=== PATIENT | female | born 1965 | race Caucasian/White ===

== ENCOUNTER 2016-12-20 11:18 | Emergency (ER) | payer OTHER ==
[~2016-12-20] VITALS: Ht 157.5 cm; Wt 95.0 kg
[2016-12-20 11:21] VITALS: TEMP 36.8; Ht 157.5 cm; Wt 95.0 kg
[2016-12-20] MEDS ORDERED: CEFAZOLIN IV 2,000 MG in DEXTROSE 5% 50ML 50 ML IV ONE (11:45)
--- NOTE | 2016-12-20 12:18 | DIAGNOSTIC IMAGING REPORT ---
LEFT ANKLE 3 VIEWS HISTORY: cellulitis L ankle COMPARISON: None. FINDINGS: There is no fracture or dislocation. Lateral soft tissue swelling. No cortical erosion. No radiopaque foreign bodies. IMPRESSION: Lateral soft tissue swelling within the left ankle. No underlying bony abnormality. Electronically signed by: Michael Oscar M.D. 12/20/2016 12:16 PM Dictated Date/Time: 12/20/2016 12:15 PM
[2016-12-20 12:31] LABS: BUN/CREATININE RATIO 10.7 (10-20); CALCIUM 9.5 mg/dl (8.5-10.1); CREATININE 0.76 mg/dl (0.60-1.20)
[2016-12-20 13:03] LABS: BASO % 0.2 %; BASO ABS # 0.02 K/uL (0-0.2); COMPLETE YES; EOS % 1.5 %; HEMATOCRIT 42.3 % (37-47); IG% 0.4 %; LYMPH % 16.6 %; LYMPH ABS # 1.87 K/uL (1.2-3.4); MEAN CELL VOLUME 84.8 fL (80-100); MEAN CORPUSCULAR HEMOGLOBIN 30.1 pg (25-34); MEAN CORPUSCULAR HGB CONC 35.5 g/dl (32-36); MEAN PLATELET VOLUME 10.4 fL (7.4-10.4); MONO % 7.6 %; NEUT % 73.7 %; PLATELET COUNT 232 K/uL (130-400); RED BLOOD COUNT 4.99 M/uL (4.2-5.4); WHITE BLOOD COUNT 11.27 K/uL (4.8-10.8)
[2016-12-20] MEDS ORDERED: CEPH500C PO (14:52)
[2016-12-20 15:10] VITALS: BP 108/51; PULSE 79; O2SAT 94
[2016-12-20] MEDS ORDERED: CEPHALEXIN 500MG HOME PACK 1 EA BTL PO ONE (15:15)
--- NOTE | 2016-12-21 17:51 | EMERGENCY ROOM VISIT NOTE ---
History First contact with patient: 11:24 Chief Complaint: WOUND INFECTION Stated Complaint: LEFT ANKLE INFECTION Nursing Triage Summary: left vail infection unable to visualize in triage History of Present Illness The patient is a 51 year old, [place] white female who presents to the Emergency Room with complaints of pain, redness, swelling of her left ankle. Her accompanies her today. Symptoms have been present for a few days. She states she has been wearing shoes. The morning before onset, she walked out to the garden to spread fertilizer on her garden. She denies any known insect bites or stings. She denies any known trauma to the ankle. Redness has been increasing, as has the pain and swelling. No treatment other than topical castor oil. She denies any fevers or chills. She is ambulatory with a limp secondary to the pain. She notes some redness in the lateral calf. No shortness of breath. No history of clots. No prior history of similar episode. Review of Systems REVIEW OF SYSTEM: HEENT: No dizziness, visual problems, hearing loss, or tinnitus. There is no difficulty swallowing and no oral lesions are present. PULMONARY: No cough, shortness of breath, sputum production or hemoptysis. CARDIOVASCULAR: No chest pain, palpitations, shortness of breath or peripheral edema. GASTROINTESTINAL: No diarrhea, constipation, nausea, vomiting, or abdominal pain. GENITOURINARY: No dysuria, frequency, urgency or nocturia. NEUROLOGIC: No weakness, muscle tenderness, epilepsy or history of neurological problems. MUSCULOSKELETAL: No history of joint tenderness/swelling. No history of arthritis or arthralgias. SKIN: No rashes or lesions. PSYCHIATRIC: No history of depression or mental illness. ENDOCRINE: No history of diabetes, thyroid disorders, or abnormal hair growth. Past Medical/Surgical History Previous surgeries: None. Medical history: Benign Family History Noncontributory. Social History Smoking Status: Never Smoker Smokeless Tobacco Use: No Alcohol Use: none Drug Use: none Marital Status: Housing Status: lives with family Occupation Status: unemployed Current/Historical Medications Scheduled Cephalexin Monohydrate (Keflex), 500 MG PO QID Allergies Coded Allergies: Sulfa Antibiotics (Unverified Allergy, Unknown, ., 12/20/16) Amoxicillin (Unverified Adverse Reaction, Unknown, ., 12/20/16) PREFERS NOT TO TAKE IT Physical Exam Vital Signs Date Time Temp Pulse Resp B/P (MAP) Pulse Ox O2 Delivery O2 Flow Rate FiO2 12/20/16 15:10 79 20 108/51 94 12/20/16 12:02 68 20 112/67 98 Room Air 12/20/16 11:21 36.8 73 18 115/70 97 Pain Rating (0-10): 2.0 Physical Exam Gen.: Well-developed, well-nourished, middle-aged white female, in no acute distress. Obvious discomfort. Sitting on a bed. Alert and oriented. Skin:Warm and dry with good turgor. No ecchymosis. She has erythema present over the posterior lateral of the ankle. It is approximately 8-9 cm in diameter for the most central induration. There is mild redness extending out from that. There is a central pinpoint puncture that may be an insect sting or bite. No stinger is remaining. There is a punctate scab. This was removed easily. There is no purulent drainage. Nothing is expressible. No palpable soft central abscess. Area is hot and tender to touch. The patient is not diaphoretic. No abrasions. Musculoskeletal: Gross motor function is intact to the knee, ankle, and toes. There is pain with palpation over the posterior lateral ankle and over the Achilles. No pain with palpation on the medial aspect. Normal Homans test. Normal Spangler test. Neurologic: Gross sensation is intact across the foot and ankle by soft touch. Peripheral pulses are 2+. Medical Decision & Procedures ER Provider Diagnostic Interpretation: Radiographic imaging obtained today of left ankle was read by radiology as negative for fracture. Soft tissue swelling is noted. Laboratory Results 12/20/16 11:45 Red Blood Count 4.99, Mean Corpuscular Volume 84.8, Mean Corpuscular Hemoglobin 30.1, Mean Corpuscular Hemoglobin Concent 35.5, Mean Platelet Volume 10.4, Neutrophils (%) (Auto) 73.7, Lymphocytes (%) (Auto) 16.6, Monocytes (%) (Auto) 7.6, Eosinophils (%) (Auto) 1.5, Basophils (%) (Auto) 0.2, Neutrophils # (Auto) 8.31, Lymphocytes # (Auto) 1.87, Monocytes # (Auto) 0.86, Eosinophils # (Auto) 0.17, Basophils # (Auto) 0.02 12/20/16 11:45 Test 12/20/16 11:45 White Blood Count 11.27 K/uL (4.8-10.8) Red Blood Count 4.99 M/uL (4.2-5.4) Hemoglobin 15.0 g/dL (12.0-16.0) Hematocrit 42.3 % (37-47) Mean Corpuscular Volume 84.8 fL (80-100) Mean Corpuscular Hemoglobin 30.1 pg (25-34) Mean Corpuscular Hemoglobin Concent 35.5 g/dl (32-36) Platelet Count 232 K/uL (130-400) Mean Platelet Volume 10.4 fL (7.4-10.4) Neutrophils (%) (Auto) 73.7 % Lymphocytes (%) (Auto) 16.6 % Monocytes (%) (Auto) 7.6 % Eosinophils (%) (Auto) 1.5 % Basophils (%) (Auto) 0.2 % Neutrophils # (Auto) 8.31 K/uL (1.4-6.5) Lymphocytes # (Auto) 1.87 K/uL (1.2-3.4) Monocytes # (Auto) 0.86 K/uL (0.11-0.59) Eosinophils # (Auto) 0.17 K/uL (0-0.5) Basophils # (Auto) 0.02 K/uL (0-0.2) RDW Standard Deviation 38.5 fL (36.4-46.3) RDW Coefficient of Variation 12.6 % (11.5-14.5) Immature Granulocyte % (Auto) 0.4 % Immature Granulocyte # (Auto) 0.04 K/uL (0.00-0.02) Anion Gap 6.0 mmol/L (3-11) Est Creatinine Clear Calc Drug Dose 92.0 ml/min Estimated GFR () 103.8 Estimated GFR (Non- 89.6 BUN/Creatinine Ratio 10.7 (10-20) Calcium Level 9.5 mg/dl (8.5-10.1) CBC and PRP were obtained today. Mild elevation in white count of 11.2. Medications Administered Medications (Trade) Dose Ordered Sig/Saray Route Start Time Stop Time Status Last Admin Dose Admin Cefazolin Sodium 2000 mg/Dextrose 60 ml @ 100 mls/hr ONE ONCE IV 12/20/16 11:45 12/20/16 12:20 DC 12/20/16 11:58 100 MLS/HR Cephalexin Monohydrate (Keflex 500MG Home Pack) 1 homepack NOW ONCE PO 12/20/16 15:15 12/20/16 15:16 DC 12/20/16 15:23 1 HOMEPACK Ancef 2 g IV, Keflex 500 mg home pack ED Course Patient and her were educated regarding today's findings. Conservative care measures were discussed. IV was established. Labs were obtained. She was administered Ancef 2 g IV. She cannot take sulfa drugs. Patient will be started on Keflex 500 mg 4 times a day 10 days. She was placed in a Jaeger dressing and will need to be nonweightbearing. She will leave this in place until reevaluated. Follow-up with her PCP or the ED in 48 hours for reexamination. it was stressed that this is very important. Return to the ED sooner for any fevers, increasing redness, or streaking. She was offered a prescription for pain medication. She stated she had pain pills at home. She may also use Tylenol and Motrin every 6 hours if needed. Cellulitis handout was provided. Medical Decision Possibility of foreign body, insect sting, spider bite, cellulitis, abscess, DVT , and tendinopathy were considered Impression Primary Impression: Cellulitis of left ankle Departure Information Dispostion Home / Self-Care Condition FAIR Prescriptions Cephalexin Monohydrate (Keflex) 500 Mg Cap 500 MG PO QID, #28 CAP Prov: Tomasz Tellez,P.A. 12/20/16 Referrals Savage Oliver D.O. Forms CARE OF CASTS, WORK / SCHOOL INSTRUCTIONS, HOME CARE DOCUMENTATION FORM, MOTRIN USE, TYLENOL USE , WOUND CARE INSTRUCTIONS, IMPORTANT VISIT INFORMATION Patient Instructions Cellulitis - [facility], [facility] Additional Instructions Keep the bulky dressing on until re-seen on Thursday and keep it dry Ice and elevate frequently to reduce pain and swelling Avoid putting weight on the left leg-use your walker for ambulation Keflex one pill 4 times a day 7 days Return to the ED for any increasing redness, fever, or worsening pain Tylenol and Motrin every 6 hours as needed for discomfort Call the orthopedist for reexamination or see her primary care doctor on Thursday
== END 2016-12-20 15:10 | disposition home or self-care (01) ==
LOC: C.EDB 11:21 → C.EDC 15:10
DX: L03.115 Cellulitis of right lower limb (principal); Z88.1 Allergy status to other antibiotic agents; Z88.2 Allergy status to sulfonamides